=== PATIENT | female | born 1990 | race Hispanic/Latino ===

== ENCOUNTER 2019-01-23 11:11 | Emergency (ER) | payer SELFPAY ==
[2019-01-23] MEDS ORDERED: Acetaminophen 500 MG TAB ONE (12:41)
[2019-01-23] MEDS ORDERED: Ibuprofen 200 MG TAB ONE (12:41)
--- NOTE | 2019-01-23 13:05 | RAD ---
EXAM: Chest PA and lateral: HISTORY: Fever. Headache. Diarrhea. COMPARISON: None FINDINGS: Heart: Normal Aorta: Unremarkable Pulmonary vessels: Normal Costophrenic angles: Costophrenic angles are clear. Lungs: No consolidation or masses. Pneumothorax: No pneumothorax Osseous structures: No osseous abnormalities IMPRESSION: No acute cardiopulmonary process.
== END 2019-01-23 13:25 | disposition home or self-care (01) ==
LOC: ERS 11:11 → EDBD 11:11 → ERS 13:25
DX: J10.1 Influenza due to other identified influenza virus with other respiratory manifestations (principal)
CPT/HCPCS: 71046; 87804